=== PATIENT | female | born 1965 | race Caucasian/White ===

== ENCOUNTER 2023-05-09 10:24 | Emergency (ER) | payer BC, SELFPAY ==
[2023-05-09 11:08] VITALS: BP 127/60; PULSE 56; RESP 19; TEMP 36.8; O2SAT 100; BMI 22.1
--- NOTE | 2023-05-09 11:11 | ED_ITS ---
HPI - General Adult General Chief complaint: Animal Bite Stated complaint: cat bite Time Seen by Provider: 05/09/23 11:38 Source: patient Mode of arrival: ambulatory Limitations: no limitations History of Present Illness HPI narrative: Patient is a 58-year-old female presenting to the emergency department with complaint of cat bite to the dorsal aspect of her left hand which happened around 930 this morning. Patient reports that this was her personal cat and that the cat is up-to-date on vaccinations. Patient also reports that her Tdap is up-to-date within the last 2 years. She denies any decreased range of motion, numbness or tingling. MD complaint: Cat bite Onset (ago): hour(s) Location: left and upper extremity Severity: moderate Associated symptoms: denies other symptoms Treatments prior to arrival: none Related Data Previous Rx's Medication Instructions Recorded clindamycin HCl 300 mg capsule 300 mg PO TID 7 days #20 caps 05/09/23 doxycycline hyclate 100 mg capsule 100 mg PO BID #13 caps 05/09/23 Allergies Allergy/AdvReac Type Severity Reaction Status Date / Time Sulfa (Sulfonamide AdvReac Nausea Verified 05/09/23 12:18 Antibiotics) pencillin Allergy Unknown unknown Uncoded 05/09/23 12:18 Review of Systems Review of Systems: As per HPI. Yes all other systems are reviewed and are negative Constitutional: Constitutional: Reports as per HPI [facility] Social History Social History Advance Directives: No Advance Directives Information Provided: No Physical Exam ED Vital Signs: Vital Signs - 24 hr 05/09/23 11:08 Temperature 98.3 F Pulse Rate 56 Respiratory Rate 19 Blood Pressure 127/60 Pulse Oximetry 100 Oxygen Delivery Method Room Air BMI result Body Mass Index 22.1 Vital signs have been reviewed and appear to be correct. Blood pressure normal. Heart rate normal. Respiratory rate normal. Temperature normal. Oxygen saturation normal. Const General: cooperative, healthy appearing and no acute distress Orientation/consciousness: oriented to person, oriented to place, oriented to time and patient oriented x3 Limitations: no limitations HENMT Head: Yes normocephalic and Yes atraumatic Ears: external ears normal General nose exam: Normal external nose present Face and sinus: Yes face symmetric Mouth: oropharynx normal and moist mucous membranes Throat: Yes uvula midline Eyes Pupils: Equal, round and reactive pupils present Neck Neck: Yes normal visual inspection and Yes supple Resp Effort & Inspection: normal respiratory effort and able to speak in complete sentences Auscultation: clear to auscultation bilaterally Cardio Rate: regular rate Rhythm: regular rhythm Heart sounds: S1 normal heart sound present and S2 normal heart sound present Skin General skin exam: elasticity normal and turgor normal Neuro General: oriented to person, oriented to place, oriented to time, patient oriented x3, moves all extremities, no focal motor deficits and CN's II-XI intact bilaterally Cranial nerves: Yes Equal, round and reactive pupils present Cognition (Neuro): normal cognition Extrem General: Yes full ROM, Yes no pedal edema and Yes no calf tenderness Left upper extremity: hand Details: normal capillary refill, neuromotor exam normal, neurosensory exam normal, normal ROM of fingers and laceration dorsal hand mid Details: linear (3.5cm over 4th/5th metacarpals) Psych Mental Status: mental status grossly normal Affect: normal affect Thought process: Normal thought process present Course Course Course Narrative: RME performed by Leisa Sterling PA-C. Patient is a 58 year old assigned female at presenting to the emergency department with a cat bite to the left hand. Patient is up to date on tetanus and the cat is up to date on vaccinations. Detailed physical exam and review of systems are deferred to the eap clinician. Patient placed back in the waiting room pending room availability. Medications Administered Discontinued Medications Generic Name Dose Route Start Last Admin Trade Name Angela PRN Reason Stop Dose Admin Lidocaine HCl 5 ml 05/09/23 12:18 05/09/23 12:37 Lidocaine Hcl 1 % Mpf 5 Ml Vial INFILTRATI 05/09/23 12:19 5 ml ONCE ONE Administration Ondansetron HCl 4 mg 05/09/23 12:29 05/09/23 12:37 Ondansetron Odt 4 Mg Tab.Rapdis TRANSLINGU 05/09/23 12:30 4 mg ONCE ONE Administration Procedures Laceration Laceration 1: Site: hand Side (If applicable): left Size (cm): 3.5 Description: linear Depth: simple, single layer Local Anesthetic: lidocaine 1% Amount of anesthesia used (mL): 3 Pre-repair: wound explored, irrigated extensively and deep structures intact Skin layer closed with: other (prolene) Size (cm): 5-0 Number of sutures: 3 Technique: simple, interrupted (wound loosely approximated with sutures) Medical Decision Making Medical Decision Making [facility] Narrative: Patient is a 58-year-old female presenting to the emergency department with complaint of cat bite to the dorsal aspect of her left hand which happened around 930 this morning. On exam patient is awake, A+Ox3, VS WNL, afebrile, normal neurological exam without focal deficits, physical exam findings as above. Given reported symptoms and physical exam findings, initial differential includes cat bite, laceration. Given that patient is up-to-date on tetanus and the cat is up-to-date on vaccines, no further vaccinations are indicated at this time. Mandatory animal bite reporting form completed and faxed by RN. Laceration repaired as per procedure note. Discussed wound care and daily wound checks with patient at bedside. Return precautions also discussed at bedside. Advised patient of sutures removed in 7 days. Will treat with clindamycin and doxycycline as patient has penicillin allergy with unknown reaction. Advised patient to monitor the cat for any signs of rabies and to return if these occur. Patient verbalized understanding of and agreement with plan. Differential Diagnosis Differential Diagnoses: The differential diagnosis associated with the presentation includes As per MDM. External Record Review External record reviewed: Inpatient record, Office record and Outpatient record Prescription Management I considered prescription management with: Antibiotic Discharge Plan Discharge Clinical Impression: Cat bite, Laceration of left hand Patient Disposition: Home, Self-Care Instructions: Animal Bite (ED), Care For Your Stitches (DC), Laceration (DC), Stitches Removal (ED) Additional Instructions: You were evaluated in the emergency department today for an animal bite. Please keep the area surrounding the wound clean and dry and assess the area daily for signs of infection. You were prescribed antibiotics today, please take the antibiotics prescribed to you in full, as directed. You were given 3 sutures to your left hand which will need to be removed in 7 days. You should keep your dressing clean and dry for the next 24 hours. After that, assess the wound and change dressing daily looking for signs of infection and return if those occur. Please follow-up with your primary care physician within 2 days. Return to the emergency department if you experience worsening or uncontrolled pain, swelling, spreading redness, fevers 100.4? F or greater, pus from your bite, or for any other concerning symptoms. Please monitor your cat for the next 10 days and if it displays any signs of rabies, return to the emergency department immediately. Prescriptions: New clindamycin HCl 300 mg capsule 300 mg PO TID 7 Days Qty: 20 0RF doxycycline hyclate 100 mg capsule 100 mg PO BID Qty: 13 0RF
--- NOTE | 2023-05-09 11:49 | PC.NURSE ---
patient soaking left hand in betadine at this time
[2023-05-09] MEDS: Ondansetron ODT 4 MG TAB.RAPDIS TRANSLINGU (12:37)
[2023-05-09] MEDS: Lidocaine HCl 1 % MPF 5 ML VIAL INFILTRATI (12:37)
--- NOTE | 2023-05-09 13:00 | PC.NURSE ---
provider in room suturing left hand laceration
[2023-05-09] MEDS: Clindamycin HCL 300 MG CAPSULE PO (13:24)
[2023-05-09] MEDS: Doxycycline Monohydrate 100 MG CAPSULE PO (13:24)
[2023-05-09 13:41] VITALS: BP 122/68; PULSE 60; RESP 16; TEMP 36.7; O2SAT 100
== END 2023-05-09 13:41 | disposition home or self-care (01) ==
PROVIDERS: Emergency Provider Emergency Medicine; PCP Nurse Practitioner Family
DX: S61.452A Open bite of left hand, initial encounter (principal); S61.412A Laceration without foreign body of left hand, initial encounter; W55.01XA Bitten by cat, initial encounter; Y93.9 Activity, unspecified; Y92.9 Unspecified place or not applicable; Y99.9 Unspecified external cause status
CPT/HCPCS: 12002; 99282; 99284